=== PATIENT | female | born 1970 | race Caucasian/White ===

== ENCOUNTER 2017-09-29 21:11 | Emergency (ER) | payer OTHER, SELFPAY ==
[2017-09-29 21:15] VITALS: BP 143/86; PULSE 67; RESP 16; TEMP 36.9; O2SAT 99; BMI 30.7
[2017-09-29] MEDS: KETOROLAC 60 MG/2 ML VIAL IM (22:34)
[2017-09-29] MEDS: predniSONE 20 MG TABLET 40 MG PO (22:34)
--- NOTE | 2017-09-29 22:44 | ED.BACK ---
HPI - Back Pain/Injury General Chief Complaint: Back Pain/Injury Stated Complaint: RT LEG PAIN Time Seen by Provider: 09/29/17 21:28 Source: patient and family Mode of arrival: ambulatory Limitations: no limitations History of Present Illness HPI Narrative: Patient returns to the emergency department for the 3rd time in the last week. She has severe right lower back pain with radiation into her right leg. She denies any urinary or bowel complaints. She denies any numbness, weakness or foot drop. She does state that she has a burning sensation on her medial right thigh and denies any injury or rash. She has been seen, as stated, twice in our department and treated for sciatica with opioids, muscle lack SIRS, anti-inflammatories, and steroids. She has seen her primary care provider whom has suggested physical therapy but she has been unable thus far. MD Complaint: back pain Onset (ago): day(s) Duration: constant Similar Symptoms Previously: Yes Location: lumbar spine and right lower back Severity: severe Quality: burning, sharp and stabbing Radiation: right leg Relieving factors: none Exacerbating factors: none Associated symptoms: denies other symptoms Related Data Previous Rx's Medication Instructions Recorded cyclobenzaprine 10 mg PO TID PRN #7 tab 09/10/17 hydrocodone-acetaminophen 1 tab PO Q4-6H PRN #7 tab 09/10/17 oxycodone-acetaminophen [Percocet] 1 tab PO Q4-6H PRN #15 tab 09/12/17 prednisone 60 mg PO DAILY #15 tab 09/12/17 diazepam [Valium] 5 mg PO TID PRN #14 tab 09/29/17 hydrocodone-acetaminophen 1 tab PO Q4-6H PRN #14 tab 09/29/17 ketorolac 10 mg PO Q6H #20 tab 09/29/17 prednisone See Label Instructions .ROUTE 09/29/17 .COMPLEX #30 tab Allergies Allergy/AdvReac Type Severity Reaction Status Date / Time Sulfa (Sulfonamide Allergy Mild Rash Verified 09/10/17 10:13 Antibiotics) Review of Systems Review of Systems All systems reviewed & are unremarkable except as noted in HPI and below Constitutional Denies chills, Denies fever(s), Denies lethargy and Denies weakness Eyes Denies change in vision, Denies eye discharge, Denies irritation and Denies loss of vision ENT Ears, Nose, Mouth, and Throat: Denies change in voice, Denies neck pain and Denies sore throat Cardiovascular Denies chest pain, Denies irregular heart rhythm, Denies lightheadedness, Denies palpitations, Denies dyspnea, Denies dyspnea on exertion and Denies orthopnea Respiratory Denies cough, Denies dyspnea, Denies dyspnea on exertion and Denies wheezing Genitourinary Denies hematuria, Denies flank pain, Denies urinary incontinence and Denies urinary urgency Musculoskeletal Reports back pain, Reports limited range of motion, Denies neck pain and Reports radiating pain into limb Integumentary/Breasts Denies pruritus, Denies erythema, Denies rash and Denies wounds Neurologic Denies loss of vision and Denies weakness Endocrine Denies palpitations Hematologic/Lymphatic Denies easy bruising Allergic/Immunologic Denies wheezing PFSH Medical History No significant medical problems (Acute) Surgical History History of facial surgery (Acute) Social History Smoking Status: Never smoker alcohol intake: never substance use type: does not use additional social history: Social history and family history are otherwise noncontributory Exam Initial Vital Signs Initial Vital Signs: Vital Signs Temperature 98.5 F 09/29/17 21:15 Pulse Rate 67 09/29/17 21:15 Respiratory Rate 16 09/29/17 21:15 Blood Pressure 143/86 H 09/29/17 21:15 Pulse Oximetry 99 09/29/17 21:15 Const General: cooperative and well developed Nutritional Appearance: well nourished Orientation: alert, awake, oriented x3 and not confused [facility] Head: normocephalic and atraumatic Ears: external ears normal and TM's normal bilaterally Nose: external nose normal and No nasal discharge Face and sinus: sinuses nontender, face symmetric, no sinus tenderness and No dry mucous membranes Mouth: oral mucosae normal and moist mucous membranes Teeth and gingiva: dentition normal Throat: tonsils normal and uvula midline Resp Effort & Inspection: normal respiratory effort, able to speak in complete sentences, no respiratory distress and no use of accessory muscles Auscultation: clear to auscultation bilaterally, no rales, no rhonchi and no wheezes GI Inspection: non-distended Palpation: soft, no hepatosplenomegaly, No guarding, No pulsatile mass and No tender Auscultation: normal bowel sounds Back/Spine/Pelvis Back: back tenderness and No CVA tenderness Cervical Spine: cervical ROM normal and No pain with cervical ROM Thoracic/Lumbar Spine: No thoraco-lumbar ROM normal, paraspinal tenderness, thoraco-lumbar spasm and straight leg raise positive Skin General: no rashes or lesions noted, No jaundice and No petechiae Neuro Gait: antalgic Motor: muscle tone normal throughout and strength 5/5 throughout Sensory Exam: no sensory deficits noted DTR's: Rt Patellar: 2+ and Lt Patellar: 2+ Extrem General: full ROM, no clubbing, cyanosis or edema, no pedal edema and no calf tenderness Psych Appearance: well kempt Mental Status: mental status grossly normal Attitude: cooperative Thought Content: normal and suicidality Judgment: judgment good Course Orders Ordered: Discontinued Medications Hydromorphone HCl (Dilaudid) 1 mg IM Q4H PRN PRN Reason: Pain, Severe Last Admin: 09/29/17 23:03 Dose: 1 mg Ketorolac Tromethamine (Toradol) 60 mg IM NOW ONE Stop: 09/29/17 22:02 Last Admin: 09/29/17 22:34 Dose: 60 mg Prednisone (Deltasone) 40 mg PO NOW ONE Stop: 09/29/17 22:02 Last Admin: 09/29/17 22:34 Dose: 40 mg Vital Signs - 8 hr 09/29/17 21:15 09/29/17 23:15 Temperature 98.5 F 97.6 F Pulse Rate 67 78 Respiratory Rate 16 20 Blood Pressure 143/86 H 139/80 H Pulse Oximetry 99 98 Discharge Plan Departure Patient Disposition: Home, Self-Care Clinical Impression: Lumbar radiculopathy Discharge Date/Time: 09/29/17 23:16 Interventions: ED Discharge Assessment Last Done: 09/29/17 23:15 Instructions: DI for Back Pain With Sciatica Activity Restrictions/Additional Instructions: *You have been diagnosed with [ sciatica ] *Take medications as directed *Follow up with your primary care provider in 2-3 days [and follow up with ortho, urology etc] *Return to ER if you should have any new, worsening or concerning symptoms Considering your symptoms are moving in the wrong direction it would seem reasonable to discuss the possiblity of an MRI with your doctor. Also, there are medications for nerve pain (Neurontin) that may be worth a try. Please discuss with your PCP Prescriptions: New hydrocodone-acetaminophen 5-325 mg tablet 1 tab PO Q4-6H PRN (Reason: pain) Qty: 14 RF: 0 diazepam [Valium] 5 mg tablet 5 mg PO TID PRN (Reason: muscle spasm) Qty: 14 RF: 0 prednisone 10 mg tablet See Label Instructions .ROUTE .COMPLEX Qty: 30 RF: 0 ketorolac 10 mg tablet 10 mg PO Q6H Qty: 20 RF: 0 No Action hydrocodone-acetaminophen 5-325 mg tablet 1 tab PO Q4-6H PRN (Reason: pain) Qty: 7 RF: 0 cyclobenzaprine 10 mg tablet 10 mg PO TID PRN (Reason: muscle spasm) Qty: 7 RF: 0 prednisone 20 mg tablet 60 mg PO DAILY Qty: 15 RF: 0 oxycodone-acetaminophen [Percocet] 5-325 mg tablet 1 tab PO Q4-6H PRN (Reason: pain) Qty: 15 RF: 0 Referrals: Abby Yanes MD [Physician] -
[2017-09-29] MEDS: HYDROMORPHONE 2 MG INJ 1 MG IM (23:03)
--- NOTE | 2017-09-29 23:04 | PC.NURSE ---
provider aware concentration of ordered dilaudid not available at this time. pt give two 0.5mg/0.5ml syringes IM for pain relief. medication dose concentration ordered unable to scan at this time.
[2017-09-29 23:15] VITALS: BP 139/80; PULSE 78; RESP 20; TEMP 36.4; O2SAT 98
== END 2017-09-29 23:16 | disposition home or self-care (01) ==
PROVIDERS: Emergency Provider Emergency Medicine
DX: M54.16 Radiculopathy, lumbar region (principal)
CPT/HCPCS: 96372; 99282; 99283; J1170; J1885

== ENCOUNTER → 2017-10-14 08:19 | Outpatient (CLI) | payer OTHER, SELFPAY ==
--- NOTE | 2017-10-14 | DI.MRI.S_ITS ---
PROCEDURE: MR LUMBAR SPINE WO CON INDICATIONS: LUMBAR RADICULOPATHY TECHNIQUE: Noncontrast sagittal T1 spin echo and T2 fast echo, sagittal STIR, axial T1 and T2 fast spin echo through the lumbar spine. In cases with scoliosis, additional coronal T2 fast spin echo may be performed. COMPARISON: None. FINDINGS: Image quality: Excellent. Alignment and Curvature: There is normal bony alignment. Bone Marrow: Marrow is of normal overall signal. No acute vertebral body compression fractures. Spinal Cord: Conus medullaris terminates at the L1 level. Visualized cord demonstrates normal signal and size. Paraspinous Soft Tissues: No paravertebral masses. T12-L1: Normal appearance. L1-L2: Normal appearance. L2-L3: No significant abnormality is seen. L3-L4: The disc height and disk signal are well-preserved. Mild disc bulge is seen. There is a focal disc protrusion seen within the right foraminal region, as on series 3 image 5 and on series 6 image 18. There is associated moderate right-sided neural foraminal narrowing. No left-sided neural foraminal narrowing is seen. No significant central canal narrowing can be seen. L4-L5: The disc height and disk signal are well-preserved. Mild disc bulge is seen, which is eccentric to the right. There is moderate facet hypertrophy. Moderate bilateral neural foraminal narrowing is seen. Mild central canal narrowing is seen. L5-S1: The disc height and disk signal are well-preserved. Minimal disc bulge is seen. Mild facet joint hypertrophy is seen. No significant neural foraminal or central canal narrowing are seen. IMPRESSION: Focal degenerative change is seen at L3-L4 and L4-L5. Dictated by: Leif Minaya M.D. on 10/14/2017 at 9:10 Approved by: Leif Minaya M.D. on 10/14/2017 at 9:18
== END ==
PROVIDERS: Visit Provider Family Medicine
DX: M51.16 Intervertebral disc disorders with radiculopathy, lumbar region (principal)
CPT/HCPCS: 72148